=== PATIENT | female | born 2000 | race Caucasian/White ===

== ENCOUNTER 2018-06-29 05:03 | Outpatient (CLI) | payer MEDICAID ==
[2018-06-29] MEDS ORDERED: LACTATED RINGER'S 1,000 ML IV ×2 (06:30→07:00)
[2018-06-29 06:46] LABS: ADD UMIC YES; UR ASCORBIC ACID NEGATIVE (NEGATIVE); UR BACTERIA FEW /HPF (NONE SEEN); UR BILIRUBIN (Dip) NEGATIVE (NEGATIVE); UR BLOOD (Dip) 1+ mg/dL (NEGATIVE); UR CLARITY SLIGHTLY CLOUDY (CLEAR); UR COLOR YELLOW (YELLOW); UR GLUCOSE (Dip) NEGATIVE (NEGATIVE); UR KETONES (Dip) NEGATIVE (NEGATIVE); UR LEUKOCYTE ESTERASE (Dip) 2+ Leu/ul (NEGATIVE); UR MUCUS FEW /HPF (NONE SEEN); UR NITRITE (Dip) NEGATIVE (NEGATIVE); UR RBC 28 /HPF (0-5); UR SQUAMOUS EPITHELIAL CELL FEW /HPF (FEW); UR TOTAL PROTEIN (Dip) 2+ mg/dl (NEGATIVE); UR UROBILINOGEN (Dip) NEGATIVE (NEGATIVE); UR WBC 77 /HPF (0-5)
[2018-06-29] MEDS: LACTATED RINGER'S 1,000 ML IV (08:33)
[2018-06-29] MEDS: CEFAZOLIN 2 GM/50 ML (PMX) 50 ML IVPB (08:34)
== END 2018-06-29 12:55 | disposition home or self-care (01) ==
LOC: OBT 05:03 → L-D 05:03 → OBT 12:55
DX: O62.9 Abnormality of forces of labor, unspecified (principal); Z3A.37 37 weeks gestation of pregnancy
CPT/HCPCS: 76818; 81001; 87086; 96360; 96361; 96365

== ENCOUNTER → 2018-07-20 | Outpatient (CLI) | payer MEDICAID | END | disposition home or self-care (01) | LOC: OBT 13:53 → L-D 13:54 → OBT 22:50 → L-D 22:50 | DX: O62.9 Abnormality of forces of labor, unspecified (principal); Z3A.40 40 weeks gestation of pregnancy | CPT/HCPCS: 76815; 76818 ==

== ENCOUNTER 2018-07-21 09:10 | Inpatient (IN) | payer MEDICAID ==
[~2018-07-21 09:10] MED LIST: OXYTOCIN 30 UNITS/LR 500 ML BAG IV
[2018-07-21] MEDS ORDERED: MISOPROSTOL 200 MCG TAB PR ×2 (10:00→16:00)
[2018-07-21] MEDS ORDERED: METHYLERGONOVINE 0.2 MG INJ IM ×2 (10:00→16:00)
[2018-07-21] MEDS ORDERED: CARBOPROST 250 MCG INJ IM ×2 (10:00→16:00)
[2018-07-21 10:04] LABS: ADD MAN DIFF? NO
[2018-07-21] MEDS: LACTATED RINGER'S 1,000 ML IV (10:09)
[2018-07-21 10:14] LABS: BASOPHILS % 0.2 % (0.0-2.0); EOSINOPHILS # 0.1 10^3/ul (0.0-0.5); HEMATOCRIT 36.4 % (37.0-47.0); HEMOGLOBIN 12.3 g/dl (12.0-16.0); LYMPHOCYTES # 1.6 10^3/ul (0.8-2.9); LYMPHOCYTES % 18.5 % (18.0-55.0); MEAN CORPUSCULAR HEMOGLOBIN 30.1 pg (29.0-33.0); MEAN CORPUSCULAR HGB CONC 33.8 g/dl (32.0-37.0); MEAN CORPUSCULAR VOLUME 89.2 fl (72.0-104.0); MEAN PLATELET VOLUME 9.7 fl (7.4-10.4); MONOCYTE # 0.8 10^3/ul (0.3-0.9); MONOCYTES % 9.4 % (0.0-13.0); NEUTROPHIL # 5.9 10^3/ul (1.6-7.5); NEUTROPHILS % 70.3 % (30.0-74.0); PLATELET COUNT 217 10^3/UL (140-415); RED BLOOD COUNT 4.08 10^6/ul (4.20-5.40); RED CELL DISTRIBUTION WIDTH 13.4 % (11.5-14.5)
[2018-07-21 10:14] LABS: WHITE BLOOD COUNT 8.4 10^3/ul (4.8-10.8)
[2018-07-21 10:33] LABS: INR 0.93; PROTIME 12.6 Sec (11.9-14.9)
[2018-07-21 10:34] LABS: PARTIAL THROMBOPLASTIN TIME 27.6 Sec (23.0-35.0)
[2018-07-21 12:49] LABS: HEPATITIS B SURFACE ANTIGEN NEGATIVE (NEGATIVE)
[2018-07-21] MEDS ORDERED: BUPIVACAINE 0.75%/DEXT (SPINAL) 2 ML INJ (12:56)
[2018-07-21] MEDS ORDERED: morphine SULFATE/PF (10 MG/10 ML) INJ (12:56)
[2018-07-21] MEDS ORDERED: HYDROmorphONE 1 MG/5 ML IV SYRINGE IV ×3 (13:00)
[2018-07-21] MEDS ORDERED: FENTAnyl 50 MCG/ML VIAL IV ×2 (13:00)
[2018-07-21] MEDS ORDERED: NALOXONE (0.4 MG/ML) INJ IV (13:00)
[2018-07-21] MEDS ORDERED: HYDROmorphONE 0.5 MG/0.5 ML SYG IV ×2 (13:00)
[2018-07-21] MEDS ORDERED: DIPHENHYDRAMINE 50 MG INJ IV ×2 (13:00)
[2018-07-21] MEDS ORDERED: ONDANSETRON 4 MG INJ IV (13:00)
[2018-07-21] MEDS ORDERED: METOCLOPRAMIDE 10 MG INJ IV (13:00)
[2018-07-21] MEDS ORDERED: PHENYLephrine (100 MCG/ML) 5ML SYG ×2 (13:07→13:47)
[2018-07-21] MEDS: CEFAZOLIN 2 GM/50 ML (PMX) 50 ML IV (14:50)
[2018-07-21] MEDS: OXYTOCIN 30 UNITS/LR 500 ML IV ×2 (15:02→19:28)
[2018-07-21 15:07] LABS: RAPID PLASMA REAGIN NONREACTIVE (NR)
[2018-07-21] MEDS ORDERED: DEXTROSE 5%-LR 1,000 ML IV (15:58)
[2018-07-21] MEDS ORDERED: METHYLERGONOVINE 0.2 MG TAB PO (16:00)
[2018-07-21] MEDS ORDERED: OXYTOCIN 30 UNITS/LR 500 ML IV (16:00)
[2018-07-21] MEDS ORDERED: MAGNESIUM HYDROXIDE 30ML CUP PO (16:00)
[2018-07-21] MEDS: KETOROLAC 30 MG INJ IV ×2 (16:10→23:57)
[2018-07-21] MEDS: SENNA/DOCUSATE NA (8.6MG/50MG) TAB PO (21:00)
[2018-07-22] MEDS: HYDROCODONE/APAP (5/325) TAB PO ×3 (08:00→21:17)
[2018-07-22 08:40] LABS: ADD MAN DIFF? NO
[2018-07-22 08:50] LABS: WHITE BLOOD COUNT 10.6 10^3/ul (4.8-10.8)
[2018-07-22 08:50] LABS: BASOPHILS % 0.3 % (0.0-2.0); EOSINOPHILS # 0.1 10^3/ul (0.0-0.5); EOSINOPHILS % 0.5 % (0.0-7.0); HEMATOCRIT 30.6 % (37.0-47.0); HEMOGLOBIN 10.3 g/dl (12.0-16.0); LYMPHOCYTES % 9.6 % (18.0-55.0); MEAN CORPUSCULAR HGB CONC 33.7 g/dl (32.0-37.0); MEAN CORPUSCULAR VOLUME 89.2 fl (72.0-104.0); MEAN PLATELET VOLUME 9.6 fl (7.4-10.4); MONOCYTE # 1.1 10^3/ul (0.3-0.9); MONOCYTES % 10.6 % (0.0-13.0); NEUTROPHIL # 8.3 10^3/ul (1.6-7.5); NEUTROPHILS % 78.4 % (30.0-74.0); PLATELET COUNT 211 10^3/UL (140-415); RED BLOOD COUNT 3.43 10^6/ul (4.20-5.40); RED CELL DISTRIBUTION WIDTH 13.5 % (11.5-14.5)
[2018-07-22] MEDS: SENNA/DOCUSATE NA (8.6MG/50MG) TAB PO ×2 (10:02→20:54)
[2018-07-22] MEDS: LACTATED RINGER'S 1,000 ML IV ×2 (10:02→17:00)
[2018-07-22] MEDS: KETOROLAC 30 MG INJ IV (10:15)
[2018-07-22] MEDS: IBUPROFEN 800 MG TAB PO ×2 (14:52→21:16)
[2018-07-22] MEDS: LANOLIN 7 GM TUBE TOP (20:55)
[2018-07-23] MEDS: LACTATED RINGER'S 1,000 ML IV (01:00)
[2018-07-23] MEDS: HYDROCODONE/APAP (5/325) TAB PO ×7 (04:05→22:00)
[2018-07-23] MEDS: IBUPROFEN 800 MG TAB PO ×3 (06:42→22:18)
[2018-07-23] MEDS: SENNA/DOCUSATE NA (8.6MG/50MG) TAB PO ×2 (09:52→20:10)
[2018-07-24] MEDS: IBUPROFEN 800 MG TAB PO (05:40)
[2018-07-24] MEDS: HYDROCODONE/APAP (5/325) TAB PO (05:41)
[2018-07-24] MEDS: MEASLES,MUMPS,RUBELLA VACCINE INJ SC* (08:28)
[2018-07-24] MEDS: DIPHTH/TET/ACEL PERTUSS (ADULT) 0.5 ML VIAL IM* (09:02)
[2018-07-24] MEDS: SENNA/DOCUSATE NA (8.6MG/50MG) TAB PO (09:02)
== END 2018-07-24 15:53 | disposition home or self-care (01) | DRG 766 ==
LOC: L-D 09:10 → PP1 16:45
PROVIDERS: Obstetrics & Gynecology
PROC: 10D00Z1 Extraction of Products of Conception, Low, Open Approach (ICD-10-PCS; principal; 2018-07-21 10:30)
DX: O69.81X0 Labor and delivery complicated by cord around neck, without compression, not applicable or unspecified (principal); O82 Encounter for cesarean delivery without indication; O99.824 Streptococcus B carrier state complicating childbirth; Z3A.40 40 weeks gestation of pregnancy; Z37.0 Single live birth; Z23 Encounter for immunization
CPT/HCPCS: 85025; 85610; 85730; 86592; 86850; 86900; 86901; 87340; 90715